=== PATIENT | male | born 1955 | race American Indian/Alaskan Native ===

== ENCOUNTER 2017-12-05 10:50 | Emergency (ER) | payer MEDICARE ==
[2017-12-05] MEDS ORDERED: AFRIN ONE (11:32)
[2017-12-05] MEDS ORDERED: COCAINE 4% TP ONE ×2 (12:04)
[2017-12-05 12:15] LABS: Basophils % (Auto) 0.6 % (0.0-1.8); Eosinophils % (Auto) 0.1 % (0.0-4.3); Hematocrit 45.1 % (35.5-45.6); Hemoglobin 14.5 gm/dl (11.8-15.2); Lymphocytes # (Auto) 1.2 K/mm3 (1.2-5.4); Lymphocytes % (Auto) 13.8 % (13.4-35.0); Mean Corpuscular HGB Conc 32 % (32-34); Mean Corpuscular Hemoglobin 30 pg (28-32); Mean Corpuscular Volume 92 fl (84-94); Monocytes # (Auto) 0.5 K/mm3 (0.0-0.8); Monocytes % (Auto) 5.8 % (0.0-7.3); Platelet Count 265 K/mm3 (140-440); Red Blood Count 4.89 M/mm3 (3.65-5.03); Red Cell Distribution Width 12.8 % (13.2-15.2)
[2017-12-05 12:26] LABS: INR 0.86 (0.87-1.13)
[2017-12-05 12:27] LABS: Partial Thromboplastin Time 24.7 Sec. (24.2-36.6)
[2017-12-05 12:35] LABS: BUN/Creatinine Ratio 23; Blood Urea Nitrogen 18 mg/dL (9-20); Calcium 8.8 mg/dL (8.4-10.2); Hemolysis Index 45
[2017-12-05] MEDS ORDERED: NACL 0.9% 1000 ML 1,000 ML IV ONE (13:38)
--- NOTE | 2017-12-05 13:41 | Emergency Department Report ---
ED General Adult HPI - General Chief complaint: Nosebleed Stated complaint: NOSE BLEED Time Seen by Provider: 12/05/17 12:04 Source: patient Mode of arrival: Ambulatory Limitations: No Limitations - History of Present Illness Initial comments: Pt is a 61M pmhx of HTN and Lung cancer who presents with nose bleeding. Pt states that nose bleeding started. Pt states that nose bleeding started around 2 :30 AM this morning and it has been slowing bleeding since then. Pt states that he has mild nose pain it is an 4/10 nothing makes the pain better or worse pt states that this is the second time that this has happened before. Pt denies any trauma to the nose and states that it occurred suddenly while he was resting. - Related Data Previous Rx's Medication Instructions Recorded Last Taken Type Oxymetazoline 0.05% [Afrin] 2 spray NS Q8H #1 bottle 12/05/17 Unknown Rx Allergies Allergy/AdvReac Type Severity Reaction Status Date / Time No Known Allergies Allergy Unverified 12/05/17 11:28 ED Review of Systems ROS: Stated complaint: NOSE BLEED Other details as noted in HPI Constitutional: denies: chills, fever Eyes: denies: eye pain, eye discharge, vision change ENT: epistaxis Respiratory: denies: cough, shortness of breath, wheezing Cardiovascular: denies: chest pain, palpitations Endocrine: no symptoms reported Gastrointestinal: denies: abdominal pain, nausea, diarrhea Genitourinary: denies: urgency, dysuria Musculoskeletal: denies: back pain, joint swelling, arthralgia Skin: denies: rash, lesions Neurological: denies: headache, weakness, paresthesias Psychiatric: denies: anxiety, depression Hematological/Lymphatic: denies: easy bleeding, easy bruising ED Past Medical Hx - Past Medical History Hx Hypertension: Yes Hx of Cancer: Yes (Lung) - Surgical History Past Surgical History?: Yes Additional Surgical History: Lung - Social History Smoking Status: Current Every Day Smoker Substance Use Type: Alcohol - Medications Home Medications: Home Medications Medication Instructions Recorded Confirmed Last Taken Type Oxymetazoline 0.05% [Afrin] 2 spray NS Q8H #1 bottle 12/05/17 Unknown Rx ED Physical Exam - General Limitations: No Limitations - Eye Eye exam: Present: normal appearance - ENT ENT exam: Present: other (bloody nares unable to locate the vessel that is bleeding. ) ED Course Vital Signs 12/05/17 11:26 Pulse Rate 119 H Respiratory 16 Rate Blood Pressure 130/90 O2 Sat by Pulse 100 Oximetry - Procedure Description Procedures done: Nasal packing. Used 4% cocaine and used 6 q-tips in each nare. Pt tolerated procedure well and pressure was applied to the affected area for 15 minutes. Patient tolerated the procedure well. ED Medical Decision Making - Lab Data Result diagrams: 12/05/17 12:05 12/05/17 12:05 Lab Results 12/05/17 12/05/17 12/05/17 Range/Units 12:05 12:05 12:05 WBC 8.4 (4.5-11.0) K/mm3 RBC 4.89 (3.65-5.03) M/mm3 Hgb 14.5 (11.8-15.2) gm/dl Hct 45.1 (35.5-45.6) % MCV 92 (84-94) fl MCH 30 (28-32) pg MCHC 32 (32-34) % RDW 12.8 L (13.2-15.2) % Plt Count 265 (140-440) K/mm3 Lymph % (Auto) 13.8 (13.4-35.0) % [place] % (Auto) 5.8 (0.0-7.3) % Eos % (Auto) 0.1 (0.0-4.3) % Baso % (Auto) 0.6 (0.0-1.8) % Lymph # 1.2 (1.2-5.4) K/mm3 [place] # 0.5 (0.0-0.8) K/mm3 Eos # 0.0 (0.0-0.4) K/mm3 Baso # 0.0 (0.0-0.1) K/mm3 Seg Neutrophils % 79.7 H (40.0-70.0) % Seg Neutrophils # 6.7 (1.8-7.7) K/mm3 PT 12.1 L (12.2-14.9) Sec. INR 0.86 L (0.87-1.13) APTT 24.7 (24.2-36.6) Sec. Sodium 141 (137-145) mmol/L Potassium 4.7 (3.6-5.0) mmol/L Chloride 100.9 (98-107) mmol/L Carbon Dioxide 25 (22-30) mmol/L Anion Gap 20 mmol/L BUN 18 (9-20) mg/dL Creatinine 0.8 (0.8-1.5) mg/dL Estimated GFR > 60 ml/min BUN/Creatinine Ratio 23 % Glucose 106 H (75-100) mg/dL Calcium 8.8 (8.4-10.2) mg/dL - Medical Decision Making Cdx: kiesselbach plexus hemorrage ddx: Posterior nose bleed, anemia, coagulopathy plan is to get cbc, bmp, inr, ptt, IV fluids and nasal packing Pt's blood work is unremarkable. Pt has stopped bleeding with nasal packing and cocaine. I will send pt home to f/u with PCP. Discussed plan with patient and patient agrees with plan additional verbal discharge instructions were given. Critical care attestation.: If time is entered above; I have spent that time in minutes in the direct care of this critically ill patient, excluding procedure time. ED Disposition Clinical Impression: Bleeding nose, Nose pain Disposition: DC- TO HOME OR SELFCARE Is pt being admited?: No Does the pt Need Aspirin: No Condition: Stable Instructions: Oxymetazoline (Into the nose), Epistaxis (ED) Prescriptions: Oxymetazoline 0.05% [Afrin] 2 spray NS Q8H #1 bottle Referrals: ROSIE ELIAS MD [Staff Physician] - 3-5 Days LEANNE PARRA MD [Staff Physician] - 3-5 Days Forms: Accompanied Note
[2017-12-05] MEDS ORDERED: AFRIN NS ONE (15:17)
[2017-12-05] MEDS ORDERED: ZOFRAN IV ONE (15:24)
[2017-12-05 16:55] VITALS: BP 142/86
== END 2017-12-05 16:55 | disposition home or self-care (01) ==
LOC: ED 10:50
DX: R04.0 Epistaxis (principal); I10 Essential (primary) hypertension; C34.90 Malignant neoplasm of unspecified part of unspecified bronchus or lung; F17.200 Nicotine dependence, unspecified, uncomplicated
CPT/HCPCS: 30905; 36415; 80048; 85025; 85610; 85730; 96361; 96374; 99283; J2405; J7030

== ENCOUNTER 2021-12-11 12:53 | Emergency (ER) | payer MEDICARE ==
[2021-12-11] MEDS ORDERED: predniSONE 20 MG TAB PO ONE (13:14)
[2021-12-11] MEDS ORDERED: ONDANSETRON 4 MG ODT TAB PO ONE (13:14)
--- NOTE | 2021-12-11 13:27 | Emergency Department Report ---
ED General Adult HPI - General Chief complaint: Weakness Stated complaint: COLD Source: patient Mode of arrival: Ambulatory Limitations: No Limitations - History of Present Illness Initial comments: Patient presents with a cough, congestion, generalized weakness, and malaise. He has had fevers and chills. He reports nausea and upset stomach. He has had vomiting with this. There has been no diarrhea. He actually states that about a month ago he had respiratory symptoms and thought he had a sinus infection. He went to his doctor and was treated for sinus infection. He states that he really never got better. His symptoms actually started to worsen about 3 or 4 days ago. He has not had hemoptysis. He has had no hematemesis. He has no hematuria. He was not vaccinated against coronavirus. He does report diffuse arthralgias and myalgias. - Related Data Previous Rx's Medication Instructions Recorded Last Taken Type Oxymetazoline 0.05% [Afrin] 2 spray NS Q8H #1 bottle 12/05/17 Unknown Rx Albuterol Sulfate [Proventil Hfa] 2 puff IH 4XD #1 inh 12/11/21 Unknown Rx Azithromycin [Zithromax] 250 mg PO DAILY #6 12/11/21 Unknown Rx Benzonatate [Tessalon Perles] 100 mg PO Q8HR #21 cap 12/11/21 Unknown Rx Allergies Allergy/AdvReac Type Severity Reaction Status Date / Time No Known Allergies Allergy Unverified 12/05/17 11:28 ED Review of Systems ROS: Stated complaint: COLD Other details as noted in HPI Comment: All other systems reviewed and negative Constitutional: see HPI Eyes: denies: eye pain ENT: denies: throat pain Respiratory: see HPI Cardiovascular: denies: chest pain Endocrine: denies: unexplained weight loss Gastrointestinal: as per HPI Genitourinary: denies: dysuria Musculoskeletal: as per HPI Skin: denies: rash Neurological: denies: headache Hematological/Lymphatic: denies: easy bruising ED Past Medical Hx - Past Medical History Previous Medical History?: Yes Hx Hypertension: Yes - Surgical History Past Surgical History?: Yes Additional Surgical History: Lung - Family History Family history: hypertension - Social History Smoking Status: Current Every Day Smoker (We discussed tobacco cessation x3 minutes) Substance Use Type: Alcohol - Medications Home Medications: Home Medications Medication Instructions Recorded Confirmed Last Taken Type Oxymetazoline 0.05% [Afrin] 2 spray NS Q8H #1 bottle 12/05/17 Unknown Rx Albuterol Sulfate [Proventil Hfa] 2 puff IH 4XD #1 inh 12/11/21 Unknown Rx Azithromycin [Zithromax] 250 mg PO DAILY #6 12/11/21 Unknown Rx Benzonatate [Tessalon Perles] 100 mg PO Q8HR #21 cap 12/11/21 Unknown Rx ED Physical Exam - General Limitations: No Limitations, Other (Pulse ox noted and hypoxic. This improves with treatment.) General appearance: alert, in no apparent distress - Head Head exam: Present: atraumatic, normocephalic - Eye Eye exam: Present: normal appearance, EOMI - ENT ENT exam: Present: normal orophraynx, normal external ear exam - Neck Neck exam: Present: normal inspection. Absent: meningismus - Respiratory Respiratory exam: Present: wheezes (Bilateral), rhonchi (Bilateral), prolonged expiratory - Cardiovascular Cardiovascular Exam: Present: normal rhythm, tachycardia - GI/Abdominal GI/Abdominal exam: Present: soft. Absent: tenderness - Extremities Exam Extremities exam: Present: normal capillary refill. Absent: pedal edema - Back Exam Back exam: Absent: CVA tenderness (R), CVA tenderness (L) - Neurological Exam Neurological exam: Present: alert, oriented X3, CN II-XII intact, normal gait. Absent: motor sensory deficit - Psychiatric Psychiatric exam: Present: normal affect, normal mood - Skin Skin exam: Present: warm, dry ED Course Vital Signs 12/11/21 13:01 Temperature 98.9 F Pulse Rate 135 H Respiratory 16 Rate Blood Pressure 152/94 [Left] O2 Sat by Pulse 92 Oximetry - Reevaluation(s) Reevaluation #1: 12/11/21 13:26 X-rays were ordered. Patient likely has coronavirus. EKG has been noted. He does have sinus tachycardia. We will address his symptoms. Reevaluation #2: 12/11/21 15:38 X-ray was noted and the patient was discharged. ED Medical Decision Making - Radiology Data Radiology results: report reviewed - Medical Decision Making Patient present with upper respiratory symptoms. The radiologist did read a questionable change in the posterior right base. There is no old chest x-ray for comparison. Whether this is chronic or whether this is infectious or somewhat indeterminate. Patient certainly could also have a viral infection. He could have coronavirus. At this time, he is not hypoxic. He does not require treatment. He will be treated symptomatically. Based on the questiona ble finding of a right lower lobe infiltrate, he was treated empirically with antibiotics. He is referred to PCP for recheck. Critical Care Time: No Critical care attestation.: If time is entered above; I have spent that time in minutes in the direct care of this critically ill patient, excluding procedure time. ED Disposition Clinical Impression: Suspected COVID-19 virus infection RLL pneumonia Qualifiers: Pneumonia type: due to unspecified organism Qualified Code(s): J18.9 - Pneumonia, unspecified organism Disposition: HOME / SELF CARE / HOMELESS Is pt being admited?: No Condition: Stable Instructions: Bacterial Pneumonia (ED), Cough, Adult, Community-Acquired Pneumonia, Adult Additional Instructions: Have a bland diet. Drink plenty of water. Alternate Tylenol and ibuprofen for fever. Return for problems. Follow-up with your regular doctor or the referral doctor for recheck. Prescriptions: Albuterol Sulfate [Proventil Hfa] 2 puff IH 4XD #1 inh Benzonatate [Tessalon Perles] 100 mg PO Q8HR #21 cap Azithromycin [Zithromax] 250 mg PO DAILY #6 Referrals: PRIMARY MD EDUARD [Primary Care Provider] - 3-5 Days JANET CHRISTENSEN MD [Staff Physician] - 3-5 Days
--- NOTE | 2021-12-11 13:49 | XRay Report ---
CHEST 2 VIEWS INDICATION / CLINICAL INFORMATION: COUGH, FEVER STUDY TIME: 1331 COMPARISON: None available. FINDINGS: SUPPORT DEVICES: None. HEART / MEDIASTINUM: No significant abnormality. LUNGS / PLEURA: Extensive surgical changes are seen in the right hemithorax and mediastinal region wi th evidence of partial pneumonectomy. Rib deformity is thought related to that procedure. Volume loss is seen on the right. Surgical glands are also seen in the left base. No definite pleural effusions are seen. Areas of probable scarring are noted, particularly on the right. No definite acute pneumoni c infiltrate is seen though some density in the right posterior base is indeterminate without prior s tudies. Follow-up may be useful to determine stability. No pneumothorax. ADDITIONAL FINDINGS: Mild anterior loss of height of 3 mid to lower vertebral bodies is noted which p robably is old. No subluxation is seen. Signer Name: Josue Gallagher MD Signed: 12/11/2021 1:45 PM Workstation Name: [id number]
[2021-12-11] MEDS ORDERED: ALBUTEROL 8.5 GM MDI INHALATION IH ONE (14:14)
[2021-12-11 15:56] VITALS: BP 150/92
--- NOTE | 2021-12-15 09:15 | Electrocardiograph Report ---
[facility] Test Date: 2021-12-11 Test Time: 13:07:43 Pat Name: WILLIAM BENEDICT Department: Room: Gender: M Reimbursement Liaison: ASHU : 1955 Requested By: ED DOC Order Number: [id number] Reading MD: Mane Moreno Measurements Intervals Theresa Rate: 125 P: 65 IA: 121 QRS: 54 QRSD: 89 T: 65 QT: 316 QTc: 456 Interpretive Statements Sinus tachycardia Consider left ventricular hypertrophy No previous ECG available for comparison Electronically Signed On 12-15-2021 9:15:07 EST by Mane Moreno
== END 2021-12-11 15:53 | disposition home or self-care (01) ==
LOC: ED 12:53
DX: J18.9 Pneumonia, unspecified organism (principal); I10 Essential (primary) hypertension; F17.200 Nicotine dependence, unspecified, uncomplicated; Z98.890 Other specified postprocedural states; Z20.822 Contact with and (suspected) exposure to COVID-19; Z79.899 Other long term (current) drug therapy
CPT/HCPCS: 71046; 93005; 99283; J7512; J3490; Q0162